=== PATIENT | female | born 1985 | race Caucasian/White ===

== ENCOUNTER 2017-06-08 11:18 | Inpatient (IN) | payer MEDICAID ==
[~2017-06-08] VITALS: Ht 162.6 cm; Wt 58.5 kg
[~2017-06-08 11:18] MED LIST: DIVA500T69 PO; OLAN5TAB40 PO
[2017-06-08 11:54] LABS: BASOPHILS % (AUTO) 0.9 % (0.0-2.0); EOSINOPHILS % (AUTO) 1.5 % (1.0-6.0); HEMOGLOBIN 12.6 g/dL (12.0-16.0); LYMPHOCYTES # (AUTO) 2.1 K/uL (1.0-4.8); LYMPHOCYTES % (AUTO) 36.6 % (22.0-44.0); MEAN CORPUSCULAR HEMOGLOBIN 30.5 pg (26.0-34.0); MEAN CORPUSCULAR VOLUME 90 fL (80-100); MONOCYTES # (AUTO) 0.4 K/uL (0.1-1.0); MONOCYTES % (AUTO) 7.1 % (2.0-9.0); NEUTROPHILS # (AUTO) 3.1 K/uL (1.8-7.7); NEUTROPHILS % (AUTO) 53.9 % (40.0-70.0); PLATELET COUNT (AUTO) 269 K/uL (150-450); RED BLOOD CELL COUNT(AUTO) 4.12 MIL/uL (4.00-5.20); RED CELL DISTRIBUTION WIDTH 13.9 % (11.5-14.5)
[2017-06-08] MEDS ORDERED: OXCA300T PO (12:07)
[2017-06-08] MEDS ORDERED: PROZ10 PO (12:07)
[2017-06-08] MEDS ORDERED: GABA-531 PO (12:07)
[2017-06-08] MEDS ORDERED: OLAN7.5T2 PO (12:07)
[2017-06-08] MEDS ORDERED: DIPH25 PO (12:07)
[2017-06-08 12:10] LABS: ANION GAP 9 mmol/L (8-16); CALCIUM, TOTAL 8.7 mg/dL (8.8-10.5); CARBON DIOXIDE 26 mmol/L (22-29); CHLORIDE 103 mmol/L (98-107); CREATININE 0.83 mg/dL (0.60-1.30); GLOMERULAR FILTR. RATE CALC > 60 mL/min (>60); GLUCOSE,RANDOM 77 mg/dL (70-110); POTASSIUM 3.8 mmol/L (3.5-5.1); SODIUM SERUM 138 mmol/L (136-145); UREA NITROGEN, BLOOD 11 mg/dL (7-18)
[2017-06-08 12:24] LABS: ALANINE AMINOTRANSFERASE 27 U/L (12-78); ALKALINE PHOSPHATASE 46 U/L (46-116); ASPARTATE AMINOTRANSFERASE 24 U/L (15-37); BILIRUBIN,TOTAL 0.5 mg/dL (0.1-1.0); TOTAL PROTEIN, SERUM 7.3 g/dL (6.4-8.2)
[2017-06-08] MEDS ORDERED: LORazepam 2 MG TABLET ONE (14:08)
[2017-06-08] MEDS ORDERED: HALOPERIDOL 5 MG TABLET ONE (14:08)
[2017-06-08] MEDS ORDERED: HALOPERIDOL 5 MG TABLET PO ONE (14:15)
[2017-06-08] MEDS ORDERED: LORazepam 1 MG TABLET PO ONE (14:15)
[2017-06-08] MEDS ORDERED: OLANZapine 5 MG RAPDIS TABLET PO PRN (16:30)
[2017-06-08] MEDS ORDERED: ZOLPIDEM TARTRATE 10 MG TABLET PO PRN (16:30)
[2017-06-08] MEDS ORDERED: LORazepam 2 MG TABLET PO PRN (16:30)
[2017-06-08] MEDS: OLANZapine 5 MG TABLET PO SCH (20:19)
[2017-06-09 06:19] LABS: CHOL/HDL RATIO 2.5 (3.9-5.7)
[2017-06-09 10:15] VITALS: BP 106/60
[2017-06-09] MEDS ORDERED: ACETAMINOPHEN 325 MG TABLET PO PRN (12:00)
[2017-06-09] MEDS ORDERED: IBUPROFEN 400 MG TABLET PO PRN (12:00)
[2017-06-09] MEDS: GABAPENTIN 300 MG CAPSULE PO SCH ×2 (16:18→20:30)
[2017-06-09] MEDS: OLANZapine 5 MG TABLET PO SCH (20:30)
[2017-06-09 20:34] VITALS: BP 102/67
[2017-06-10 05:25] VITALS: BP 97/59
[2017-06-10 08:06] VITALS: BP 95/60
[2017-06-10] MEDS: FLUoxetine HCL 20 MG CAPSULE PO SCH (08:57)
[2017-06-10] MEDS: GABAPENTIN 300 MG CAPSULE PO SCH ×2 (08:58→16:52)
[2017-06-10 18:54] VITALS: BP 102/62
[2017-06-10] MEDS: OLANZapine 5 MG TABLET PO SCH (20:33)
[2017-06-11 06:30] VITALS: BP 117/63
[2017-06-11 08:12] VITALS: BP 102/56
[2017-06-11] MEDS: FLUoxetine HCL 20 MG CAPSULE PO SCH (08:59)
[2017-06-11] MEDS: GABAPENTIN 300 MG CAPSULE PO SCH ×3 (08:59→17:16)
[2017-06-11 16:24] VITALS: BP 104/64
[2017-06-11] MEDS: OLANZapine 5 MG TABLET PO SCH (20:27)
[2017-06-12 04:43] VITALS: BP 117/68
[2017-06-12] MEDS: GABAPENTIN 300 MG CAPSULE PO SCH ×3 (08:28→16:26)
[2017-06-12] MEDS: FLUoxetine HCL 20 MG CAPSULE PO SCH (08:28)
[2017-06-12 08:50] VITALS: BP 107/66
[2017-06-12] MEDS ORDERED: MAGNESIUM HYDROXIDE SUSPENSION 30 ML UDCUP PO PRN (11:30)
[2017-06-12 16:09] VITALS: BP 105/60
[2017-06-12] MEDS: OLANZapine 5 MG TABLET PO SCH (20:17)
[2017-06-13 05:00] VITALS: BP 108/62
[2017-06-13 08:30] VITALS: BP 95/63
[2017-06-13] MEDS: FLUoxetine HCL 20 MG CAPSULE PO SCH (09:01)
[2017-06-13] MEDS: GABAPENTIN 300 MG CAPSULE PO SCH ×3 (09:01→16:18)
[2017-06-13 14:27] VITALS: BP 104/65
[2017-06-13 17:43] VITALS: BP 106/65
[2017-06-13] MEDS: OLANZapine 5 MG TABLET PO SCH (20:02)
[2017-06-14 08:04] VITALS: BP 111/60
[2017-06-14] MEDS: FLUoxetine HCL 20 MG CAPSULE PO SCH (08:56)
[2017-06-14] MEDS: GABAPENTIN 300 MG CAPSULE PO SCH ×3 (08:56→16:01)
[2017-06-14 16:25] VITALS: BP 109/67
[2017-06-14] MEDS: OLANZapine 5 MG TABLET PO SCH (20:16)
[2017-06-15 05:29] VITALS: BP 117/74
[2017-06-15 08:29] VITALS: BP 118/92
[2017-06-15] MEDS: GABAPENTIN 300 MG CAPSULE PO SCH ×2 (08:49→12:29)
[2017-06-15] MEDS: FLUoxetine HCL 20 MG CAPSULE PO SCH (08:49)
== END 2017-06-15 13:10 | disposition home or self-care (01) | DRG 750 ==
LOC: EMS 11:19 → AHU 06-09 09:49 → B3A 06-10 18:05
PROVIDERS: ADMIT Psychiatry & Neurology Psychiatry; ATTEND Psychiatry & Neurology Psychiatry
DX: F25.0 Schizoaffective disorder, bipolar type (principal); I95.9 Hypotension, unspecified; R45.851 Suicidal ideations; F15.20 Other stimulant dependence, uncomplicated; F41.9 Anxiety disorder, unspecified; R41.843 Psychomotor deficit; F32.9 Major depressive disorder, single episode, unspecified; G89.29 Other chronic pain; F17.200 Nicotine dependence, unspecified, uncomplicated; Z79.899 Other long term (current) drug therapy; Z91.5 Personal history of self-harm
CPT/HCPCS: 87081; 99285; G0480

== ENCOUNTER 2019-01-27 10:08 | Emergency (ER) | payer MEDICAID ==
[~2019-01-27] VITALS: Ht 162.6 cm; Wt 63.0 kg
[~2019-01-27 10:08] MED LIST changes: -DIVA500T69 PO; +GABA-531 PO; -OLAN5TAB40 PO; +OLAN7.5T2 PO; +PROZ10 PO
[2019-01-27] MEDS ORDERED: GABA-533 PO (10:43)
[2019-01-27] MEDS ORDERED: ARIP400S3 IM (10:43)
[2019-01-27 11:28] LABS: EOSINOPHILS % (AUTO) 2.5 % (1.0-6.0); HEMATOCRIT 37.4 % (36-46); LYMPHOCYTES # (AUTO) 1.7 K/uL (1.0-4.8); LYMPHOCYTES % (AUTO) 36.3 % (22.0-44.0); MEAN CORPUSCULAR HEMOGLOBIN 29.4 pg (26.0-34.0); MEAN CORPUSCULAR HGB CONC 32.2 G/dL (31.0-37.0); MEAN CORPUSCULAR VOLUME 92 fL (80-100); MONOCYTES # (AUTO) 0.3 K/uL (0.1-1.0); MONOCYTES % (AUTO) 6.2 % (2.0-9.0); NEUTROPHILS # (AUTO) 2.6 K/uL (1.8-7.7); PLATELET COUNT (AUTO) 229 K/uL (150-450); RED BLOOD CELL COUNT(AUTO) 4.08 MIL/uL (4.00-5.20); RED CELL DISTRIBUTION WIDTH 14.7 % (11.5-14.5)
[2019-01-27 11:41] LABS: ANION GAP 12 mmol/L (8-16); CALCIUM, TOTAL 8.9 mg/dL (8.8-10.5); CARBON DIOXIDE 23 mmol/L (22-29); CHLORIDE 104 mmol/L (98-107); CREATININE 0.73 mg/dL (0.60-1.30); GLOMERULAR FILTR. RATE CALC > 60 mL/min (>60); GLUCOSE,RANDOM 87 mg/dL (70-110); POTASSIUM 3.8 mmol/L (3.5-5.1); SODIUM SERUM 139 mmol/L (136-145); UREA NITROGEN, BLOOD 15 mg/dL (7-18)
[2019-01-27 11:54] LABS: ALANINE AMINOTRANSFERASE 9 U/L (12-78); ALBUMIN 3.8 g/dL (3.4-5.0); ALKALINE PHOSPHATASE 39 U/L (46-116); ASPARTATE AMINOTRANSFERASE 10 U/L (15-37); BILIRUBIN,TOTAL 0.5 mg/dL (0.1-1.0); HCG,QUANTITATIVE < 1 mIU/mL (0-6); TOTAL PROTEIN, SERUM 6.9 g/dL (6.4-8.2)
[2019-01-27 12:38] VITALS: BP 110/61
== END 2019-01-27 12:39 | disposition home or self-care (01) ==
LOC: EMS 10:10
DX: R45.851 Suicidal ideations (principal); R44.0 Auditory hallucinations; F17.210 Nicotine dependence, cigarettes, uncomplicated; F41.9 Anxiety disorder, unspecified; F31.9 Bipolar disorder, unspecified; F20.9 Schizophrenia, unspecified; G89.29 Other chronic pain
CPT/HCPCS: 36415; 80053; 84702; 85025; 99285; 99406; G0480